=== PATIENT | male | born 1960 | race Caucasian/White ===

== ENCOUNTER 2017-07-01 08:45 | Emergency (ER) | payer OTHER ==
[~2017-07-01] VITALS: Ht 172.7 cm; Wt 77.1 kg
[~2017-07-01 08:45] MED LIST: ADVAIR 250-501 EACH INH; ANDROGEL75 G1 TOP; LISINOPRIL-HCT1 EAC1 PO; OXYCODONE-ACET1 EAC1 PO; OXYCONTIN80 M1 PO; PROAIR HFA8.5 GM INH; VITAMIN B-121000 MC3 PO; VITAMIN C500 M6 PO; VITAMIN D2000 UNI1 PO
--- NOTE | 2017-07-01 09:15 | ED HAND/WRIST INJURY COMPLAINT ---
History of Present Illness General Chief Complaint: Hand or Wrist Injury Stated Complaint: RT HAND PAIN INJURY SEEN AT [facility] LAST WEEK Source: patient Exam Limitations: no limitations Vital Signs & Intake/Output Vital Signs & Intake/Output Vital Signs Date Time Temp Pulse Resp B/P B/P Pulse O2 O2 Flow FiO2 Mean Ox Delivery Rate 07/01 1015 99.2 90 18 142/88 98 Room Air 07/01 0850 90 15 158/83 96 Room Air Room Air Allergies Coded Allergies: No Known Allergies (07/01/17) Reconcile Medications Albuterol Sulfate (Proair Hfa) 90 MCG HFA.AER.AD 2 PUF INH AD PRN COPD ( Reported) Amoxicillin/Potassium Clav (Augmentin 875-125 Tablet) 875 MG-125 MG TABLET 1 TAB PO BID CELLULITIS Ascorbate Calcium (Vitamin C) (Unknown Strength) TABLET (Unknown Dose) PO DAILY SUPPLEMENT (Reported) Cholecalciferol (Vitamin D3) (Vitamin D) (Unknown Strength) TABLET (Unknown Dose) PO DAILY SUPPLEMENT (Reported) Cyanocobalamin (Vitamin B-12) (Unknown Strength) TABLET (Unknown Dose) PO DAILY SUPPLEMENT (Reported) Fluticasone/Salmeterol (Advair 250-50 Diskus) 250 MCG-50 MCG/DOSE BLST.W.DEV 1 PUF INH BID COPD (Reported) Lisinopril/Hydrochlorothiazide (Lisinopril-Hctz 20-25 MG Tab) (Unknown Strength) TABLET (Unknown Dose) PO DAILY BP (Reported) Naproxen 500 MG TABLET 1 TAB PO BID PRN PAIN/SWELLING Oxycodone HCl (Oxycontin) 80 MG TAB.ER.12H 1 TAB PO 4XDAILY CHRONIC PAIN ( Reported) Oxycodone HCl/Acetaminophen (Oxycodone-Acetaminophen 10-325) 10 MG-325 MG TABLET 1-2 TAB PO 4XDP PRN CHRONIC PAIN (Reported) Testosterone (Androgel) 20.25/1.25 GEL..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 DENIES INJURY TO AREA. RECENTLY DIAGNOSED WITH R 2ND FINGER "OPEN FRACTURE" AT [facility] LAST WEEK. PT ON PAIN MANAGEMENT AND TOOK DAILY PAIN MEDS ALREADY AND VOLTARAN CREAM WITHOUT RELIEF. PT DECLINED PAIN MED OFFER IN TRIAGE. Triage Nurses Notes Reviewed? yes Occurred: 2-3 DAYS Duration: day(s): (2-3) Timing: remote history Injury Environment: home Severity: moderate Severity Numbers: 8 Pain/Injury Location: Right: Wrist, Hand. Context: RECENT FINGER LACERATION/FX Modifying Factors: Improves With: immobilization. Worsens With: movement. HPI: Patient is a 56-year-old male with remote history of scaphoid fracture that was unhealed, recent history of a tuft fracture of the second right finger that he sustained about a week and a half ago as an open fracture. He is coming in today for a 2-3 day history of moderate erythema and edema to the right hand. Denies fevers or chills. Denies any new injury. He has been taking antibiotics as prescribed for the tuft fracture. He followed up with orthopedics 2 days ago. Denies any nausea or vomiting. No chest pain palpitations or shortness of breath. (Yoli Rasmussen) Past History Travel History Traveled to [place] past 21 day No Medical History Any Pertinent Medical History? 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 No (Yoli Rasmussen) Review of Systems Review of Systems Constitutional: Reports: no symptoms. Comments Review of systems: See HPI, All other systems negative. Constitutional, no chills fever or weight loss HEENT: No visual changes no sore throat no congestion Cardiovascular: No chest pain ,palpitation Skin, no jaundice Respiratory: No dyspnea cough sputum or hemoptysis GI: No nausea no vomiting Muscle skeletal: no back pain, no neck pain, Neurologic: No numbness no confusion Psych: No stress anxiety Immunology: No splenectomy or history of AIDS (Yoli Rasmussen) Physical Exam Physical Exam General Appearance: well developed/nourished, no apparent distress, alert, awake , comfortable Hand Left: normal inspection, normal range of motion Hand Right: limited range of motion, swelling, tender Comments: Well-developed well-nourished person in no acute distress HEENT: Atraumatic, normocephalic Neck: Normal inspection Cardiovascular: Radial pulses are 2+ bilaterally. Respiratory: No respiratory distress. Extremity: Moderate edema noted over the dorsum of the right hand that extends into the right wrist. Diffuse tenderness over this area. Significant reduction in range of motion of right hand and wrist secondary to pain. Able to range all the digits except for the right second digit at the distal tip without difficulty. There is a small, healing laceration at the distal tip that enters the nail bed of the right second digit. No erythema noted on the right second finger. Mild erythema noted over the dorsum of the right hand. Mildly warm to palpation in this area. Full range of motion of left hand without difficulty or pain. Neuro: Alert oriented x3, motor sensory normal Skin: See extremity exam. Otherwise No appreciable rash on exposed skin, skin is warm and dry. Psych: Mood and affect is normal, memory and judgment is normal. (Yamila JAMES,Yoli) Progress Differential Diagnosis: cellulitis, contusion, compartment syndrome, dislocation , fracture, gout, septic arthritis, sprain, tenosynovitis Plan of Care: Orders Procedure Date/time Status Durable Medical Equipment 07/01 1036 Active WESTERGREN SED RATE 07/01 1016 Complete COMPREHENSIVE METABOLIC PANEL 07/01 1016 Complete CBC WITHOUT DIFFERENTIAL 07/01 1016 Complete Laboratory Tests 07/01/17 1040: Anion Gap 8, Estimated GFR > 60, BUN/Creatinine Ratio 31.3 H, Glucose 102 H, Calcium 9.8, Total Bilirubin 0.8, AST 19, ALT 24, Alkaline Phosphatase 77, Total Protein 6.8, Albumin 4.2, Globulin 2.6, Albumin/Globulin Ratio 1.6, CBC w Diff NO MAN DIFF REQ, RBC 4.81, MCV 88.7, MCH 29.9, MCHC 33.7, RDW 13.4, MPV 7.7, Gran % 80.5 H, Lymphocytes % 10.4 L, Monocytes % 8.3, Eosinophils % 0.4, Basophils % 0.4, Absolute Granulocytes 10.3 H, Absolute Lymphocytes 1.3, Absolute Monocytes 1.1 H, Absolute Eosinophils 0.1, Absolute Basophils 0, ESR Westergren 5 Patient afebrile in the emergency Department. White count 12. Still pending sedimentation rate. Patient treated with 3 g IV Unasyn in the emergency department. He will follow up with hand specialist. Patient placed in splint. patient does have old injury noted on x-ray that was healed. This could be a localized inflammation as well as is no significant erythema on exam. Diagnostic Imaging: Viewed by Me: Radiology Read. Discussed w/RAD: Radiology Read. Radiology Impression: PATIENT: CAROLYN GALAVIZ PRESENT AGE: 56 PATIENT ACCOUNT NO: [id number] : 60 LOCATION: [facility] ORDERING PHYSICIAN: Yoli JAMES SERVICE DATE: 07/01/17 EXAM TYPE: RAD - XRY-HAND, RIGHT; XRY-WRIST COMPLETE-RIGHT EXAMINATION: RIGHT HAND AND RIGHT WRIST RADIOGRAPHS. CLINICAL INFORMATION: Pain and swelling status post injury. Evaluate for fracture. COMPARISON: No relevant prior imaging. TECHNIQUE: 3 views of the right wrist were obtained. 3 views of the right hand were obtained. FINDINGS: There is an acute comminuted fracture involving the phalangeal tuft of the distal phalanx second digit. No dislocation. 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 Slight positive ulnar variance. Soft tissues are unremarkable. IMPRESSION: Acute comminuted fracture of the phalangeal tuft of the second digit. 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 DICTATED BY: Raymundo Frederick MD DATE/TIME DICTATED:07/01/171024 WINDER TENDER:REKHA DATE/TIME TRANSCRIBED:07/01/171024 CONFIDENTIAL, DO NOT COPY WITHOUT APPROPRIATE AUTHORIZATION. <Electronically signed in Other Vendor System> SIGNED BY: Raymundo Frederick MD 07/01/17 1032 Comments: Patient given Unasyn and IV morphine here in the emergency department. Sedimentation rate is negative. Unlikely septic arthritis. Patient treated with anti-inflammatories and will continue at home pain medication. Patient the nose about the distal tuft fracture of the right second digit. He has an orthopedic for that already. Patient most continue antibiotics. Patient nontoxic. D/W DR CAMARENA AND HE AGREES WITH PLAN. (Yamila JAMES,Yoli) Departure Departure Disposition: HOME OR SELF CARE Condition: Stable Clinical Impression Primary Impression: Hand sprain Qualifiers: Encounter type: initial encounter Laterality: right Qualified Code: S63.91XA - Sprain of unspecified part of right wrist and hand, initial encounter Secondary Impressions: Cellulitis Qualifiers: Site of cellulitis: extremity Site of cellulitis of extremity: upper extremity Laterality: right Qualified Code: L03.113 - Cellulitis of right upper limb Referrals: Miriam Benoit MD (PCP/Family) Chico Juan MD Additional Instructions: Follow-up with Dr. Juan, hand specialist, call tomorrow to make an appointment. Wear splint to help with immobilizing the joint. Take anti- inflammatories as prescribed. Continue previously prescribed pain medication. Stop taking cephalexin, start Augmentin. Return for worsening symptoms or concerns. Departure Forms: Customer Survey General Discharge Information Prescriptions: Current Visit Scripts Amoxicillin/Potassium Clav (Augmentin 875-125 Tablet) 1 TAB PO BID #20 TAB Naproxen 1 TAB PO BID PRN PAIN/SWELLING #20 TAB (Yoli Rasmussen) PA/SENIOR MANUFACTURING SUPERVISOR Co-Sign Statement Statement: ED Attending supervision documentation- [] I saw and evaluated the patient. I have also reviewed all the pertinent lab results and diagnostic results. I agree with the findings and the plan of care as documented in the PA's/SENIOR MANUFACTURING SUPERVISOR's documentation. [X] I have reviewed the ED Record and agree with the PA's/SENIOR MANUFACTURING SUPERVISOR's documentation. [] Additions or exceptions (if any) to the PAs/SENIOR MANUFACTURING SUPERVISOR's note and plan are summarized below: [] (Rebekah PAULSON,Juan Marquez) Procedures Splinting Location: RIGHT HAND Manual Alignment Performed: No Pre-Made Type: velcro Splint: wrist Splint Applied By: splint applied by other (NURSING) Pre-Proc Neuro Vasc Exam: normal Post-Proc Neuro Vasc Exam: normal Progress: Tolerated procedure well (Yoli Rasmussen)
[2017-07-01 10:15] VITALS: BP 142/88
--- NOTE | 2017-07-01 10:32 | RADIOLOGY REPORT ---
EXAMINATION: RIGHT HAND AND RIGHT WRIST RADIOGRAPHS. CLINICAL INFORMATION: Pain and swelling status post injury. Evaluate for fracture. COMPARISON: No relevant prior imaging. TECHNIQUE: 3 views of the right wrist were obtained. 3 views of the right hand were obtained. FINDINGS: There is an acute comminuted fracture involving the phalangeal tuft of the distal phalanx second digit. No dislocation. 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 Slight positive ulnar variance. Soft tissues are unremarkable. IMPRESSION: Acute comminuted fracture of the phalangeal tuft of the second digit. 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
[2017-07-01 10:57] LABS: ABSOLUTE BASOPHIL COUNT 0 /CUMM (0.0-0.2); ABSOLUTE EOSINOPHIL COUNT 0.1 /CUMM (0.0-0.7); ABSOLUTE GRANULOCYTE CT 10.3 /CUMM (1.4-6.5); ABSOLUTE LYMPH COUNT 1.3 /CUMM (1.2-3.4); ABSOLUTE MONOCYTE COUNT 1.1 /CUMM (0.10-0.60); BASOPHIL % 0.4 % (0.0-2.0); EOSINOPHIL % 0.4 % (0-5); GRANULOCYTE % 80.5 % (42.2-75.2); HEMATOCRIT 42.6 % (42-52); MEAN CORPUSCULAR HGB 29.9 PG (27.0-31.0); MEAN CORPUSCULAR HGB CONC 33.7 G/DL (33.0-37.0); MEAN CORPUSCULAR VOLUME 88.7 FL (80.0-94.0); MEAN PLATELET VOLUME 7.7 FL (7.4-10.4); PLATELET COUNT 275 /CUMM (130-400); RBC DISTRIBUTION WIDTH 13.4 % (11.5-14.5); RED BLOOD CELL CT 4.81 /CUMM (4.70-6.10); WHITE BLOOD CELL COUNT 12.8 /CUMM (4.8-10.8)
[2017-07-01] MEDS ORDERED: AUGMENTIN 875-1 EACH PO (11:58)
[2017-07-01] MEDS ORDERED: NAPROXEN500 M2 PO (11:58)
== END 2017-07-01 12:45 ==
LOC: ERH 08:45
PROVIDERS: Physician Assistant
DX: S63.91XA Sprain of unspecified part of right wrist and hand, initial encounter (principal); L03.113 Cellulitis of right upper limb; X58.XXXA Exposure to other specified factors, initial encounter; Y92.9 Unspecified place or not applicable; Y93.9 Activity, unspecified
CPT/HCPCS: 73110-RT; 73130-RT; 96372; 96374; 96375; J1885

== ENCOUNTER 2017-11-03 16:44 | Emergency (ER) | payer OTHER ==
[~2017-11-03] VITALS: Ht 172.7 cm; Wt 77.1 kg
[~2017-11-03 16:44] MED LIST changes: +AUGMENTIN 875-1 EACH PO; +NAPROXEN500 M2 PO
--- NOTE | 2017-11-03 17:14 | ED GENERAL ADULT ---
History of Present Illness General Chief Complaint: ETOH/Drug Related Complaint Stated Complaint: BIBA WITH OVERDOSE Source: patient, EMS Exam Limitations: no limitations Vital Signs & Intake/Output Vital Signs & Intake/Output Vital Signs Date Time Temp Pulse Resp B/P B/P Pulse O2 O2 Flow FiO2 Mean Ox Delivery Rate 11/03 2037 97.5 104 18 125/68 95 11/03 1830 98.2 88 15 114/71 94 11/03 1653 98.2 110 17 124/72 96 Room Air Allergies Coded Allergies: No Known Allergies (07/01/17) Reconcile Medications Albuterol Sulfate (Proair Hfa) 90 MCG HFA.AER.AD 2 PUF INH AD PRN COPD ( Reported) Amoxicillin/Potassium Clav (Augmentin 875-125 Tablet) 875 MG-125 MG TABLET 1 TAB PO BID CELLULITIS Ascorbate Calcium (Vitamin C) (Unknown Strength) TABLET (Unknown Dose) PO DAILY SUPPLEMENT (Reported) Cholecalciferol (Vitamin D3) (Vitamin D) (Unknown Strength) TABLET (Unknown Dose) PO DAILY SUPPLEMENT (Reported) Cyanocobalamin (Vitamin B-12) (Unknown Strength) TABLET (Unknown Dose) PO DAILY SUPPLEMENT (Reported) Fluticasone/Salmeterol (Advair 250-50 Diskus) 250 MCG-50 MCG/DOSE BLST.W.DEV 1 PUF INH BID COPD (Reported) Lisinopril/Hydrochlorothiazide (Lisinopril-Hctz 20-25 MG Tab) (Unknown Strength) TABLET (Unknown Dose) PO DAILY BP (Reported) Naproxen 500 MG TABLET 1 TAB PO BID PRN PAIN/SWELLING Oxycodone HCl (Oxycontin) 80 MG TAB.ER.12H 1 TAB PO 4XDAILY CHRONIC PAIN ( Reported) Oxycodone HCl/Acetaminophen (Oxycodone-Acetaminophen 10-325) 10 MG-325 MG TABLET 1-2 TAB PO 4XDP PRN CHRONIC PAIN (Reported) Testosterone (Androgel) 20.25/1.25 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 FOUND UNRESPONSIVE IN BATHROOM OF HOUSE. GIVEN 4MG NARCAN INTRANASALLY BY FAMILY. APNEIC FOR EMS, GIVEN ANOTHER 4MG NARCAN IM. ARRIVES AWAKE AND ALERT. DENIES DRUG USE, TAKES 60MG OXYCODONE REGULARLY. Triage Nurses Notes Reviewed? yes Onset: Abrupt Duration: minute(s): Timing: single episode today Injury Environment: home HPI: 57YO male with hx of chronic knee pain, HTN, COPD BIBA from home following possible overdose. Per EMS the patient was found unresponsive at home. He was given 4mg narcan by family and 4mg narcan by EMS. Following second dose patient became responsive. Patient reports he feels at his baseline health currently. He takes 60mg percocet BID, he states "I may have taken an extra pill". Patient states he remembers getting home and taking his percocet then passed out while trimming his toe nails. He denies chest pain, dyspnea, headache. (Diane Christian) Past History Travel History Traveled to [place] past 21 day No Medical History Any Pertinent Medical History? 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 No (Diane Christian) Review of Systems Review of Systems Constitutional: Reports: see HPI. EENTM: Reports: no symptoms. Respiratory: Reports: no symptoms. Cardiovascular: Reports: no symptoms. GI: Reports: no symptoms. Genitourinary: Reports: no symptoms. Musculoskeletal: Reports: no symptoms. Skin: Reports: no symptoms. Neurological/Psychological: Reports: see HPI. Hematologic/Endocrine: Reports: no symptoms. Immunologic/Allergic: Reports: no symptoms. All Other Systems: Reviewed and Negative (Diane Christian) Physical Exam Physical Exam General Appearance: well developed/nourished, no apparent distress, alert, awake Head: atraumatic, normal appearance Eyes: Bilateral: normal appearance, PERRL, EOMI. Ears, Nose, Throat: normal pharynx, hearing grossly normal Neck: normal inspection, supple, full range of motion Respiratory: normal breath sounds, no respiratory distress, lungs clear Cardiovascular: regular rate/rhythm, normal peripheral pulses Peripheral Pulses: 2+ radial (R), 2+ radial (L) Gastrointestinal: normal bowel sounds, soft, non-tender, no organomegaly Back: normal inspection, normal range of motion Extremities: normal inspection, normal range of motion Neurologic/Psych: awake, alert, oriented x 3, canvass manager II-XII nml as tested Skin: intact, normal color, warm/dry Core Measures ACS in differential dx? Yes CVA/TIA Diagnosis: No Sepsis Present: No Sepsis Focused Exam Completed? No (Brina JAMES,Diane Smith) Progress Differential Diagnoses I considered the following diagnoses in my evaluation of the patient: [Acute coronary syndrome, overdose, electrolyte abnormality, anemia] Plan of Care: Orders Procedure Date/time Status TROPONIN LEVEL 11/03 2014 Complete EKG 11/03 2014 Active EKG 11/03 175 Active TROPONIN LEVEL 11/03 1714 Complete B-TYPE NATRIURETIC PEP (BNP) 11/03 1714 Complete Add-on Test (ER Only) 11/03 171 Active EKG 11/04 1655 Active COMPREHENSIVE METABOLIC PANEL 11/03 1654 Complete CBC WITHOUT DIFFERENTIAL 11/03 1654 Complete Laboratory Tests 11/03/172009: Troponin I < 0.01 11/03/171714: Anion Gap 10, Estimated GFR 57 L, BUN/Creatinine Ratio 29.2 H, Glucose 126 H, Calcium 9.7, Total Bilirubin 0.3, AST 44, ALT 33, Alkaline Phosphatase 75, Troponin I < 0.01, Pff-U-Rlodekwypik Pept 114, Total Protein 6.9, Albumin 4.4, Globulin 2.5, Albumin/Globulin Ratio 1.8, CBC w Diff NO MAN DIFF REQ, RBC 5.06, MCV 87.5, MCH 29.6, MCHC 33.8, RDW 13.3, MPV 7.6, Gran % 71.9, Lymphocytes % 19.5 L, Monocytes % 6.7, Eosinophils % 1.5, Basophils % 0.4, Absolute Granulocytes 8.5 H, Absolute Lymphocytes 2.3, Absolute Monocytes 0.8 H, Absolute Eosinophils 0.2, Absolute Basophils 0 11/03/171655: Troponin I Cancelled 11/03/171654: Methadone Screen Cancelled, Barbiturate Screen Cancelled, Ur Phencyclidine Scrn Cancelled, Amphetamines Screen Cancelled, U Benzodiazepines Scrn Cancelled, Urine Cocaine Screen Cancelled, Urine Cannabis Screen Cancelled, Urine Color Cancelled, Urine Clarity Cancelled, Urine pH Cancelled, Ur Specific [place] Cancelled, Urine Protein Cancelled, Urine Ketones Cancelled, Urine Nitrite Cancelled, Urine Bilirubin Cancelled, Urine Urobilinogen Cancelled, Ur Leukocyte Esterase Cancelled, Ur Microscopic Cancelled, Urine Hemoglobin Cancelled, Urine Glucose Cancelled EKG was repeated due to nonspecific ST changes. Repeat EKG is stable, no acute ischemic changes. Patient has to stay for 4 hours of observation given Narcan use for overdose. Will obtain 2 sets of EKGs and troponins. Dr. Navarro agrees with this plan of care. The patient refuses urine drug screening. The patient was signed out to Dr. Brown pending second EKG and troponin. Diagnostic Imaging: Viewed by Me: Radiology Read. Discussed w/RAD: Radiology Read. CXR Impression: PATIENT: CAROLYN GALAVIZ PRESENT AGE: 57 PATIENT ACCOUNT NO: [id number] : 60 LOCATION: ER ORDERING PHYSICIAN: Diane JAMES SERVICE DATE: 11/03/17 EXAM TYPE: RAD - XRY- PORTABLE CHEST XRAY EXAMINATION: XR PORTABLE CHEST CLINICAL INFORMATION: Overdose COMPARISON: None TECHNIQUE: Portable frontal view of the chest was obtained. FINDINGS: No significant abnormality is noted involving the heart, lungs, mediastinum, bony thorax or soft tissues. IMPRESSION: Unremarkable examination. DICTATED BY: Elva Davis MD DATE/TIME DICTATED:11/03/171753 GARBAGE COLLECTOR:REKHA DATE/TIME TRANSCRIBED:11/03/171753 CONFIDENTIAL, DO NOT COPY WITHOUT APPROPRIATE AUTHORIZATION. <Electronically signed in Other Vendor System> SIGNED BY: Elva Davis MD 11/03/171758 Initial ED EKG: SINUS TACHYCARDIA @111BPM, NONSPECIFIC ST CHANGES Hand-Off Endorsed To: Satish Brown MD Endorsed Time: 1905 Pending: labs, Xray (Brina JAMES,Diane Smith) Repeat EKG: unchanged Comments: 11/03/17 19:15 pt signed out to me by andrea. 11/03/2017 9:26:05 PM I have updated the on test results including his elevated renal functions. He is been treated with a liter saline here in the emergency department and has also been drinking fluids by mouth rather avidly. He wishes to leave the emergency department. He admits to taking his oxycodone about early today (he takes this for chronic knee pain). I feels clinical presentation is consistent with overmedication with opiates. His speech is clear and his gait is stable so I feel he is stable for discharge. 11/03/2017 9:45:33 PM patient's will pick him up in the emergency department. (Stephanie PAULSON,Satish Wu) Departure Departure Condition: Stable Referrals: Mriiam Benoit MD (PCP/Family) Departure Forms: Customer Survey General Discharge Information (Brina JAMES,Diane Smith) Departure Disposition: HOME OR SELF CARE Clinical Impression Primary Impression: Opiate overdose Qualifiers: Encounter type: initial encounter Injury intent: accidental or unintentional Qualified Code: T40.601A - Poisoning by unspecified narcotics, accidental (unintentional), initial encounter Additional Instructions: Take your medications only as prescribed and after proper intervals. Follow-up with your primary care physician and the physician prescribing her pain medications on Sunday for reevaluation. Maintain a good fluid intake. Return if any concerns or sudden worsening. Please note that there might be incidental findings in your evaluation that are unrelated to the current emergency department visit. Please notify your primary care doctor about this emergency department visit in order to obtain and review all of the testing performed so that these incidental findings can be monitored as needed. If you had an x-ray performed, please understand that some fractures or other findings may not be seen on the initial set of x-rays. If your symptoms persist you might need a repeat set of x-rays to check for such a fracture. If you had a laceration evaluated, please understand that foreign bodies such as glass or wood may not be visible to the naked eye or on plain x-rays. If the wound becomes red, swollen, increasingly more painful or if there is any drainage from the wound, please have it reevaluated by a physician for the possibility of a retained foreign body. If you're unable to follow up as outlined in the discharge instructions please return to the emergency department. Thank you for choosing the [facility] Emergency Department for your care. It was a pleasure to serve you today. Satish Brown M.D. [facility] (Stephanie PAULSON,Satish Wu) PA/AGRICULTURAL MECHANIC Co-Sign Statement Statement: ED Attending supervision documentation- [X] I saw and evaluated the patient. I have also reviewed all the pertinent lab results and diagnostic results. I agree with the findings and the plan of care as documented in the PA's/AGRICULTURAL MECHANIC's documentation. [] I have reviewed the ED Record and agree with the PA's/AGRICULTURAL MECHANIC's documentation. [] Additions or exceptions (if any) to the PAs/AGRICULTURAL MECHANIC's note and plan are summarized below: [] I saw and evaluated the patient and I agree with the PAs evaluation., Status post opiate overdose. He did receive Narcan in the field. He is currently awake and alert and oriented 3. He has no complaints. He declines any interest in speaking with crisis. He will be observed for 4 hours. His EKG showed nonspecific ST-T wave abnormality. He is therefore having serial troponins. The patient was signed out to Dr. Brown at 7 PM. (Satish Henley DO) Critical Care Note Critical Care Note Critical Care Time: non-applicable (Brina JAMES,Diane Smith)
[2017-11-03 17:22] LABS: ABSOLUTE BASOPHIL COUNT 0 /CUMM (0.0-0.2); ABSOLUTE EOSINOPHIL COUNT 0.2 /CUMM (0.0-0.7); ABSOLUTE GRANULOCYTE CT 8.5 /CUMM (1.4-6.5); ABSOLUTE LYMPH COUNT 2.3 /CUMM (1.2-3.4); ABSOLUTE MONOCYTE COUNT 0.8 /CUMM (0.10-0.60); BASOPHIL % 0.4 % (0.0-2.0); EOSINOPHIL % 1.5 % (0-5); GRANULOCYTE % 71.9 % (42.2-75.2); HEMATOCRIT 44.2 % (42-52); MEAN CORPUSCULAR HGB 29.6 PG (27.0-31.0); MEAN CORPUSCULAR HGB CONC 33.8 G/DL (33.0-37.0); MEAN CORPUSCULAR VOLUME 87.5 FL (80.0-94.0); MEAN PLATELET VOLUME 7.6 FL (7.4-10.4); PLATELET COUNT 249 /CUMM (130-400); RBC DISTRIBUTION WIDTH 13.3 % (11.5-14.5); RED BLOOD CELL CT 5.06 /CUMM (4.70-6.10); WHITE BLOOD CELL COUNT 11.8 /CUMM (4.8-10.8)
--- NOTE | 2017-11-03 17:59 | RADIOLOGY REPORT ---
EXAMINATION: XR PORTABLE CHEST CLINICAL INFORMATION: Overdose COMPARISON: None TECHNIQUE: Portable frontal view of the chest was obtained. FINDINGS: No significant abnormality is noted involving the heart, lungs, mediastinum, bony thorax or soft tissues. IMPRESSION: Unremarkable examination.
[2017-11-03 20:38] VITALS: BP 125/68
== END 2017-11-03 21:56 ==
LOC: ERH 16:44
PROVIDERS: Physician Assistant
DX: T40.601A Poisoning by unspecified narcotics, accidental (unintentional), initial encounter (principal)
CPT/HCPCS: 71045; 80307; 93005; 93010; G0480